=== PATIENT | female | born 1965 | race Caucasian/White ===

== ENCOUNTER 2018-04-13 20:38 | Emergency (ER) | payer BC ==
[2018-04-13] MEDS ORDERED: IBUPROFEN 600 MG TABLET PO ONE (21:01)
--- NOTE | 2018-04-13 21:13 | Emergency Department Record ---
History of Present Illness - General Chief Complaint: Knee injury Stated Complaint: L KNEE INJURY Time Seen by Provider: 04/13/18 21:01 Source: Patient Mode of Arrival: Ambulatory Limitations: No limitations - History of Present Illness Initial Comments: 52 yo female presents to ED for evaluation of left knee pain following a slip and fall with hyperextension of the left knee. Patient reports that she was unable to stand of the left lower extremity following injury, denies other injury on examination. Patient denies health problems at her baseline, denies health problems at her baseline. MD Complaint: Knee injury Onset/Timin -: Hour(s) Injury: Knee: Left Type of Injury: Hyperextension Place: Street/outdoors Severity: Severe Severity scale (1-10): 10 Improves With: Nothing Worsens With: Palpation, Weight bearing Context: Fall Associated Symptoms: Unable to bear weight - Related Data Previous Rx's Medication Instructions Recorded Hydrocodone/Acetaminophen [[place] 1 each PO Q6H PRN #10 tablet 04/13/18 5-325 Tablet] Allergies Allergy/AdvReac Type Severity Reaction Status Date / Time novacaine AdvReac VOMITING Uncoded 04/13/18 20:55 Travel Screening - Travel/Exposure Within Last 30 Days Have you traveled within the last 30 days?: No Review of Systems Constitutional: Denies: Chills, Fever, Malaise, Night sweats Eyes: Denies: Eye discharge, Eye pain ENT: Denies: Congestion, Ear pain, Epistaxis Respiratory: Denies: Cough, Dyspnea Cardiovascular: Denies: Chest pain, Dyspnea on exertion Endocrine: Denies: Fatigue, Heat or cold intolerance Gastrointestinal: Denies: Abdominal pain, Nausea, Vomiting Genitourinary: Denies: Incontinence, Retention Musculoskeletal: Reports: Arthralgia. Denies: Back pain, Gout, Joint swelling Skin: Denies: Bruising, Change in color Neurological: Denies: Abnormal gait, Confusion, Headache, Seizure Psychiatric: Denies: Anxiety Hematological/Lymphatic: Denies: Anemia, Blood Clots Past Medical History - SOCIAL HISTORY Smoking Status: Never smoker Alcohol Use: None Drug Use: None - RESPIRATORY Hx Respiratory Disorders: No - CARDIOVASCULAR Hx Cardio Disorders: No - NEURO Hx Neuro Disorders: No - GI Hx GI Disorders: No - Hx Genitourinary Disorders: No - ENDOCRINE Hx Endocrine Disorders: No - MUSCULOSKELETAL Hx Musculoskeletal Disorders: No - PSYCH Hx Psych Problems: No - HEMATOLOGY/ONCOLOGY Hx Hematology/Oncology Disorders: No Family Medical History Any Significant Family History?: No Physical Exam - General General Appearance: Alert, Oriented x3, Cooperative, Moderate distress Limitations: No limitations - Head Head exam: Atraumatic, Normocephalic, Normal inspection Head exam detail: negative: Abrasion, Contusion, Mcgowan's sign, General tenderness, Hematoma, Laceration - Eye Eye exam: Normal appearance. negative: Conjunctival injection, Periorbital swelling, Periorbital tenderness, Scleral icterus - ENT Ear exam: negative: Auricular hematoma, Auricular trauma Nasal Exam: negative: Active bleeding, Discharge, Dried blood, Foreign body Mouth exam: negative: Drooling, Laceration, Muffled voice, Tongue elevation - Neck Neck exam: Normal inspection. negative: Meningismus, Tenderness - Respiratory Respiratory exam: Normal lung sounds bilaterally. negative: Rales, Respiratory distress, Rhonchi, Stridor - Cardiovascular Cardiovascular Exam: Regular rate, Normal rhythm, Normal heart sounds Peripheral Pulses: 3+: Dorsalis Pedis (L) - GI/Abdominal GI/Abdominal exam: Soft. negative: Rebound, Rigid, Tenderness - Rectal Rectal exam: Deferred - exam: Deferred - Extremities Extremities exam: Tenderness, Other (TTP along anterior infrapatellar region and along the lateral collateral ligament, no significant effusion is present, ligaments are stable on examination, achilles intact. Compartments of the lower leg are soft on examination, strong DPP.). negative: Calf tenderness, Pedal edema - Back Back exam: Denies: CVA tenderness (R), CVA tenderness (L) - Neurological Neurological exam: Alert, Normal gait, Oriented X3 - Psychiatric Psychiatric exam: Normal affect, Normal mood - Skin Skin exam: Normal color. negative: Abrasion Type of lesion: negative: abrasion Course Vital Signs 04/13/18 20:47 Temperature 98.9 F Pulse Rate 73 Respiratory 18 Rate Blood Pressure 137/78 Pulse Ox 100 - Reevaluation(s) Reevaluation #1: 04/13/18 21:49 Left knee: Comminuted and minimally depressed fracture of the medial tibial plateau Non-displaced proximal fibula fracture Calling the patient's orthopedist for consultation Reevaluation #2: 04/13/18 22:17 Case was discussed with Dr. Robertson ([facility]), discussed the patient's radiograph results. He recommends splinting/knee immobilizer with analgesia and instructions to follow-up Sunday for further evaluation. No clinical evidence for compartment syndrome is present on examination, strong DPP present. Patient was updated on the plan of care and is in agreement. Patient just received Morphine IV for her paint symptoms, will splint and place in knee immobilizer for follow-up. Reevaluation #3: 04/13/18 23:02 Patient was reassessed, is tolerating PO fluids without difficulty. Knee immobilizer placed, patient reports that she is feeling much more comfortable and that the lower extremity feels well supported. Patient appears stable for discharge with family at this time. Disposition Disposition: Discharge Clinical Impression: Tibial plateau fracture, left Qualifiers: Encounter type: initial encounter Fracture type: closed Qualified Code(s): S82.142A - Displaced bicondylar fracture of left tibia, initial encounter for closed fracture Fracture, fibula, proximal Qualifiers: Encounter type: initial encounter Fracture type: closed Fracture morphology: unspecified fracture morphology Laterality: left Qualified Code(s): S82.832A - Other fracture of upper and lower end of left fibula, initial encounter for closed fracture Disposition: Home, Self-Care Condition: (2) Stable Instructions: Knee Pain (ED) Additional Instructions: Return to ED if your symptoms worsen or if you have any concerns. [place], Ibuprofen, ice as directed. Follow-up with Dr. Robertson in 1-3 days as directed. Prescriptions: Hydrocodone/Acetaminophen [[place] 5-325 Tablet] 1 each PO Q6H PRN #10 tablet PRN Reason: Pain - Moderate (5-7) Referrals: JASWINDER ROBERTSON [MEDICAL DOCTOR] - Forms: Patient Portal Access Time of Disposition: 23:11 Quality - Quality Measures Quality Measures: N/A - Blood Pressure Screening Does Patient Have Any of the Following: No Blood Pressure Classification: Normal BP Reading Systolic Measurement: 117 Diastolic Measurement: 74 Screening for High Blood Pressure: < Normal BP, F/U Not Required > [[id number]] Pre-Hypertensive Follow-up Interventions: Referral to alternative/primary care provider.
[2018-04-13] MEDS ORDERED: ONDANSETRON HCL IV 4 MG/2 ML VIAL IVP ONE (21:59)
[2018-04-13] MEDS ORDERED: MORPHINE SULFATE 10 MG/ML VIAL IVP ONE (21:59)
[2018-04-13] MEDS ORDERED: HYDROCODONE/APAP 5/325MG TABLET PO ONE (22:29)
--- NOTE | 2018-04-17 05:28 | RADIOLOGY REPORT ---
DATE: 04/13/2018. EXAM: LEFT KNEE, FOUR PLUS VIEWS. HISTORY: Hyperextended and twisted left knee after fall on ice. Medial and lateral swelling. TECHNIQUE: AP, lateral, merchant's view, and two oblique images. COMPARISON: None. FINDINGS: There is a comminuted medial tibial plateau fracture with minimal depression. There is a joint hemarthrosis. There is also a suspected nondisplaced fibular head fracture. No significant degenerative changes. IMPRESSION: 1. LEFT MEDIAL TIBIAL PLATEAU FRACTURE. 2. SUSPECTED FIBULAR HEAD FRACTURE. JOB NUMBER: [id number] [facility]
== END 2018-04-13 23:02 | disposition home or self-care (01) ==
LOC: ER 20:38
DX: S82.142A Displaced bicondylar fracture of left tibia, initial encounter for closed fracture (principal); S82.832A Other fracture of upper and lower end of left fibula, initial encounter for closed fracture; W01.198A Fall on same level from slipping, tripping and stumbling with subsequent striking against other object, initial encounter; Y92.410 Unspecified street and highway as the place of occurrence of the external cause
CPT/HCPCS: 29505; 99284 ×2; 96374; 96375; 73564; J2405; J2270